=== PATIENT | female | born 1990 | race American Indian/Alaskan Native ===

== ENCOUNTER 2017-04-15 11:10 | Emergency (ER) | payer MEDICAID ==
[2017-04-15] MEDS ORDERED: ZOFRAN IV ONE (11:27)
[2017-04-15] MEDS ORDERED: NACL 0.9% 1000 ML 1,000 ML ONE (11:27)
[2017-04-15] MEDS ORDERED: NACL 0.9% 1000 ML 1,000 ML IV ONE ×3 (11:27→14:20)
--- NOTE | 2017-04-15 11:32 | Emergency Department Report ---
ED Syncope HPI - General Chief Complaint: Dizziness Stated Complaint: FAINTED/PREG Time Seen by Provider: 04/15/17 11:20 Source: patient Exam Limitations: other - History of Present Illness Initial Comments: 26-year-old female with anemia and sickle cell trait presents to the hospital complaints of syncope. Patient was at a job fair felt ill, sat down, then had a syncopal episode. EMS reports that his pressure was 90/60 and Accu-Chek 98 at the scene. 1 L IV fluids initiated prior to arrival. They report the patient mental status was depressed but appears to be more alert than she is currently. Patient is sleeping but arousable. She mumbles but is able to articulate with more effort. She is 15 weeks has had care. Positive nausea vomiting reported. She complains of pain all over. She denies chest pain or shortness of breath. After the arrival to the ED he states that patient is 27 weeks and had no complaints prior to this episode and denies recent history of nausea vomiting - Related Data Allergies/Adverse Reactions: Allergies metronidazole [From Flagyl] Allergy (Verified 04/15/17 11:36) Unknown Home Medications: Ambulatory Orders Ferrous Sulfate [Feosol 325 MG tab] 325 mg PO QDAY 04/15/17 Vit-Fe Fumar-FA [ Vitamin] 1 tab PO QDAY 04/15/17 ED Review of Systems ROS: Stated complaint: FAINTED/PREG Other details as noted in HPI Comment: Unobtainable due to pts medical conditions (patient's drowsy and will not answer questions) ED Past Medical Hx - Past Medical History Additional medical history: anemia, sickle cell trait - Social History Smoking Status: Unknown if ever smoked - Medications Home Medications: Home Medications Medication Instructions Recorded Confirmed Last Taken Type Ferrous Sulfate [Feosol 325 MG tab] 325 mg PO QDAY 04/15/17 04/15/17 Unknown History Vit-Fe Fumar-FA [ 1 tab PO QDAY 04/15/17 04/15/17 Unknown History Vitamin] ED Physical Exam - General Limitations: Altered Mental Status - Other Other exam information: General: Limited by patient's mental status/cooperate Head exam: Atraumatic, normocephalic Eyes exam: Patient closed her eyes and refuses to allow me to visualize her pupils and swats my hands away Neck exam: Normal inspection, full range of motion, no meningismus nontender Respiratory exam: Clear to auscultation bilateral, no wheezes, rales, crackles Cardiovascular: Normal rate and rhythm, normal heart sounds Abdomen: Soft, abdomen with palpable uterus, nontender. heart reported to be 150 by nurse Extremity: Full range of motion normal inspection no deformity Back: Normal Inspection, full range of motion, no tenderness Neurologic: Drowsy but arousable, moves all extremities, but not reliably follow commands repeating I am sick and don't feel well. GCS E 3, V, 4 M 4=12. 5/5 upper and lower extremity strength reported since patient resists when trying to move her Skin: Warm, dry, intact ED Course Vital Signs 04/15/17 04/15/17 04/15/17 11:31 12:17 12:21 Temperature 97.5 F L Pulse Rate 78 90 95 H Respiratory 14 15 12 Rate Blood Pressure 73/37 Blood Pressure 84/45 [Left] O2 Sat by Pulse 100 100 100 Oximetry 04/15/17 04/15/17 04/15/17 12:31 12:41 12:51 Temperature Pulse Rate 87 91 H 95 H Respiratory 16 17 12 Rate Blood Pressure 73/37 73/37 73/40 Blood Pressure [Left] O2 Sat by Pulse 100 100 100 Oximetry 04/15/17 04/15/17 04/15/17 13:18 13:21 13:30 Temperature Pulse Rate Respiratory 13 Rate Blood Pressure 82/54 86/44 86/45 Blood Pressure [Left] O2 Sat by Pulse 100 Oximetry 04/15/17 04/15/17 04/15/17 13:38 13:41 13:51 Temperature Pulse Rate Respiratory 14 14 15 Rate Blood Pressure 86/45 86/47 Blood Pressure [Left] O2 Sat by Pulse 100 100 100 Oximetry 04/15/17 04/15/17 04/15/17 14:09 14:11 14:21 Temperature Pulse Rate 80 Respiratory 15 15 13 Rate Blood Pressure 86/47 86/47 87/48 Blood Pressure [Left] O2 Sat by Pulse 100 100 100 Oximetry 04/15/17 04/15/17 04/15/17 14:30 14:41 14:51 Temperature Pulse Rate 78 79 85 Respiratory 13 13 13 Rate Blood Pressure 84/47 84/47 84/47 Blood Pressure [Left] O2 Sat by Pulse 100 100 100 Oximetry 04/15/17 04/15/17 04/15/17 15:00 15:11 15:21 Temperature Pulse Rate 80 83 80 Respiratory 15 15 14 Rate Blood Pressure 83/46 83/46 83/46 Blood Pressure [Left] O2 Sat by Pulse 100 100 100 Oximetry 04/15/17 04/15/17 04/15/17 15:30 15:41 16:00 Temperature Pulse Rate 85 86 88 Respiratory 13 14 13 Rate Blood Pressure 87/46 89/49 Blood Pressure 83/46 [Left] O2 Sat by Pulse 100 100 100 Oximetry 04/15/17 17:00 Temperature Pulse Rate 89 Respiratory 17 Rate Blood Pressure 96/54 Blood Pressure [Left] O2 Sat by Pulse 100 Oximetry - Reevaluation(s) Reevaluation #1: 04/15/17 11:37 Diastolic pressure of 81 after receiving 800 mL normal saline prior to arrival additional normal saline ordered Reevaluation #2: 04/15/17 13:04 Significant other came to the ED and stated that patient does not need a CT scan he does not know why she has not labor delivery. I explained that patient is altered which she confirms that she is currently not at her baseline mental status. I also informed him that she reported she was 15 weeks and he states she is 27 weeks. He also states that she seemed normal when he spoke to her earlier prior to syncopal episode and denies that she was having nausea or vomiting or any complaints other than intermittent leg edema. This caused a mild delay in obtaining CT scan of the head and he is now agreeable to obtaining the study. 04/15/17 13:[address] scan however, patient would not remain still on the table. We'll discuss proprius sedation medication in the setting of hypotension in a patient patient was placed in left lateral decubitus position during ED stay Reevaluation #3: 04/15/17 14:49 Pt rec Reevaluation #4: 04/15/17 16:33 I was able to arouse patient. She opens her eyes makes eye contact. She was able to respond to questions appropriately. I informed her that she has a bleeding her head and one E transfer and she asked if she was going to be okay. This time GCS is 14. - Consultations Consultation #1: 04/15/17 14:[address] Varma with [facility] [employer]. Nurse confirms a patient's blood pressure typically ranges 98-108 systolic. Confirms that ketamine is safe in 04/15/17 16:00 ct head result was faxed to Physician's office per request. made aware Consultation #2: 04/15/17 14:51 attempted transfers: [place]: no ICU beds 04/15/17 15:04 case d/w Dr Hatfield neurosurgery with [facility]. He rec transfer to the closet trauma center such as [facility]. This call was made through the [facility] transfer services who suggested that we try [facility] however I will be placed call to see if patient can be transferred to [facility] instead 04/15/17 15:55 Case d/w Dr Valles neurosurgeon [facility]. He will not accept the patient because he is unsure if they have highway maintenance crew worker although transfer service does confirm that they do have OB service. I have 04/15/17 16:19 Dr Will critical care doctor will accept pt to [facility]. Dr Valles and Ob attendings have been consulted and will evaluate pt. ED Medical Decision Making - Lab Data Result diagrams: 04/15/17 11:42 04/15/17 11:42 Lab Results 04/15/17 04/15/17 04/15/17 Range/Units 11:42 11:42 11:42 WBC 7.4 (4.5-11.0) K/mm3 RBC 2.61 L (3.65-5.03) M/mm3 Hgb 8.9 L (10.1-14.3) gm/dl Hct 26.4 L (30.3-42.9) % MCV 101 H (79-97) fl MCH 34 H (28-32) pg MCHC 34 (30-34) % RDW 13.2 (13.2-15.2) % Plt Count 152 (140-440) K/mm3 Lymph % (Auto) 22.5 (13.4-35.0) % [place] % (Auto) 6.7 (0.0-7.3) % Eos % (Auto) 0.5 (0.0-4.3) % Baso % (Auto) 0.8 (0.0-1.8) % Lymph # 1.7 (1.2-5.4) K/mm3 Rabun # 0.5 (0.0-0.8) K/mm3 Eos # 0.0 (0.0-0.4) K/mm3 Baso # 0.1 (0.0-0.1) K/mm3 Seg Neutrophils % 69.5 (40.0-70.0) % Seg Neutrophils # 5.2 (1.8-7.7) K/mm3 PT 14.6 (12.2-14.9) Sec. INR 1.15 H (0.87-1.13) Sodium 138 (137-145) mmol/L Potassium 3.6 (3.6-5.0) mmol/L Chloride 104.3 (98-107) mmol/L Carbon Dioxide 20 L (22-30) mmol/L Anion Gap 17 mmol/L BUN 6 L (7-17) mg/dL Creatinine 0.3 L (0.7-1.2) mg/dL Estimated GFR > 60 ml/min BUN/Creatinine Ratio 20.00 % Glucose 96 (65-100) mg/dL Calcium 7.8 L (8.4-10.2) mg/dL Total Bilirubin 0.60 (0.1-1.2) mg/dL AST 18 (5-40) units/L ALT 6 L (7-56) units/L Alkaline Phosphatase 32 L (35-129) units/L Total Creatine Kinase 51 (30-135) units/L CK-MB (CK-2) < 1.0 (0.0-4.0) ng/mL CK-MB (CK-2) Rel Index 1.9 (0-4) Troponin T < 0.010 (0.00-0.029) ng/mL Total Protein 5.1 L (6.3-8.2) g/dL Albumin 2.9 L (3.9-5) g/dL Albumin/Globulin Ratio 1.3 % Urine Color (Yellow) Urine Turbidity (Clear) Urine pH (5.0-7.0) Ur Specific [place] (1.003-1.030) Urine Protein (Negative) mg/dL Urine Glucose (UA) (Negative) mg/dL Urine Ketones (Negative) mg/dL Urine Blood (Negative) Urine Nitrite (Negative) Urine Bilirubin (Negative) Urine Urobilinogen (<2.0) mg/dL Ur Leukocyte Esterase (Negative) Urine WBC (Auto) (0.0-6.0) /HPF Urine RBC (Auto) (0.0-6.0) /HPF U Epithel Cells (Auto) (0-13.0) /HPF Urine Mucus /HPF Urine Opiates Screen Urine Methadone Screen Ur Barbiturates Screen Ur Phencyclidine Scrn Ur Amphetamines Screen U Benzodiazepines Scrn Urine Cocaine Screen U Marijuana (THC) Screen Drugs of Abuse Note Plasma/Serum Alcohol (0-0.07) gm% 04/15/17 04/15/17 04/15/17 Range/Units 11:42 12:13 12:13 WBC (4.5-11.0) K/mm3 RBC (3.65-5.03) M/mm3 Hgb (10.1-14.3) gm/dl Hct (30.3-42.9) % MCV (79-97) fl MCH (28-32) pg MCHC (30-34) % RDW (13.2-15.2) % Plt Count (140-440) K/mm3 Lymph % (Auto) (13.4-35.0) % [place] % (Auto) (0.0-7.3) % Eos % (Auto) (0.0-4.3) % Baso % (Auto) (0.0-1.8) % Lymph # (1.2-5.4) K/mm3 [place] # (0.0-0.8) K/mm3 Eos # (0.0-0.4) K/mm3 Baso # (0.0-0.1) K/mm3 Seg Neutrophils % (40.0-70.0) % Seg Neutrophils # (1.8-7.7) K/mm3 PT (12.2-14.9) Sec. INR (0.87-1.13) Sodium (137-145) mmol/L Potassium (3.6-5.0) mmol/L Chloride (98-107) mmol/L Carbon Dioxide (22-30) mmol/L Anion Gap mmol/L BUN (7-17) mg/dL Creatinine (0.7-1.2) mg/dL Estimated GFR ml/min BUN/Creatinine Ratio % Glucose (65-100) mg/dL Calcium (8.4-10.2) mg/dL Total Bilirubin (0.1-1.2) mg/dL AST (5-40) units/L ALT (7-56) units/L Alkaline Phosphatase (35-129) units/L Total Creatine Kinase (30-135) units/L CK-MB (CK-2) (0.0-4.0) ng/mL CK-MB (CK-2) Rel Index (0-4) Troponin T (0.00-0.029) ng/mL Total Protein (6.3-8.2) g/dL Albumin (3.9-5) g/dL Albumin/Globulin Ratio % Urine Color Yellow (Yellow) Urine Turbidity Clear (Clear) Urine pH 5.0 (5.0-7.0) Ur Specific [place] 1.016 (1.003-1.030) Urine Protein <15 mg/dl (Negative) mg/dL Urine Glucose (UA) Neg (Negative) mg/dL Urine Ketones Neg (Negative) mg/dL Urine Blood Neg (Negative) Urine Nitrite Neg (Negative) Urine Bilirubin Neg (Negative) Urine Urobilinogen 2.0 (<2.0) mg/dL Ur Leukocyte Esterase Neg (Negative) Urine WBC (Auto) 2.0 (0.0-6.0) /HPF Urine RBC (Auto) < 1.0 (0.0-6.0) /HPF U Epithel Cells (Auto) < 1.0 (0-13.0) /HPF Urine Mucus 1+ /HPF Urine Opiates Screen Presumptive negative Urine Methadone Screen Presumptive negative Ur Barbiturates Screen Presumptive negative Ur Phencyclidine Scrn Presumptive negative Ur Amphetamines Screen Presumptive negative U Benzodiazepines Scrn Presumptive negative Urine Cocaine Screen Presumptive negative U Marijuana (THC) Screen Presumptive negative Drugs of Abuse Note Disclamer Plasma/Serum Alcohol < 0.01 (0-0.07) gm% - EKG Data -: EKG Interpreted by Me (sinus rhythm rate [address]-T wave abnormalities) - Radiology Data Radiology results: report reviewed CT head: Multifocal areas of parenchymal hemorrhage most of which are periphery and located at the maharaj-white matter interface. Small right temporal subdural hematoma. Most likely etiology for these findings as trauma however there is no evidence of skull fracture or associated signs. Please correlate clinically. - Medical Decision Making Patient would need transfer to a place with neurology and neurosurgical carvers. Etiology is suggestive of head trauma based on CT findings although no trauma is confirmed on exam other than possible head injury during syncopal episode. - Differential Diagnosis anemia, vasovagal, infection, drug use, intracranial hemorrhage Critical Care Time: Yes Critical care time in (mins) excluding proc time.: 65 (multiple consults an effort to transfer. Reassessments of mental status and vital signs) Critical care attestation.: If time is entered above; I have spent that time in minutes in the direct care of this critically ill patient, excluding procedure time. ED Disposition Clinical Impression: Intracranial hemorrhage, 27 weeks gestation of , Altered mental status , Hypotension Disposition: DC/TX ANOTHER TYPE HEALTHCARE Is pt being admited?: No Condition: Stable Referrals: PRIMARY CARE,MD [Primary Care Provider] - 3-5 Days Time of Disposition: 16:20 (accepted by Dr Will at [facility]
[2017-04-15 12:03] LABS: Basophils % (Auto) 0.8 % (0.0-1.8); Eosinophils % (Auto) 0.5 % (0.0-4.3); Hematocrit 26.4 % (30.3-42.9); Hemoglobin 8.9 gm/dl (10.1-14.3); Mean Corpuscular HGB Conc 34 % (30-34); Mean Corpuscular Hemoglobin 34 pg (28-32); Mean Corpuscular Volume 101 fl (79-97); Platelet Count 152 K/mm3 (140-440); Red Blood Count 2.61 M/mm3 (3.65-5.03); Red Cell Distribution Width 13.2 % (13.2-15.2); White Blood Count 7.4 K/mm3 (4.5-11.0)
[2017-04-15 12:19] LABS: Urine Drugs of Abuse Note Disclamer
[2017-04-15 12:21] LABS: INR 1.15 (0.87-1.13)
[2017-04-15 12:28] LABS: Alanine Aminotransferase 6 units/L (7-56); Albumin 2.9 g/dL (3.9-5); Albumin/Globulin Ratio 1.3 %; Alkaline Phosphatase 32 units/L (35-129); Anion Gap 17 mmol/L; Blood Urea Nitrogen 6 mg/dL (7-17); Calcium 7.8 mg/dL (8.4-10.2); Carbon Dioxide 20 mmol/L (22-30); Chloride 104.3 mmol/L (98-107); Creatine Kinase 51 units/L (30-135); Glucose 96 mg/dL (65-100); Potassium 3.6 mmol/L (3.6-5.0); Sodium 138 mmol/L (137-145); Total Protein 5.1 g/dL (6.3-8.2)
[2017-04-15 12:31] LABS: Creatine Kinase MB < 1.0 ng/mL (0.0-4.0)
[2017-04-15 12:57] LABS: Bilirubin,Urine NEG (Negative); Blood,Urine NEG (Negative); Ketones,Urine NEG (Negative); Leukocyte Esterase,Urine NEG (Negative); Mucus,Urine 1+ /HPF; Nitrite,Urine NEG (Negative); Protein,Urine <15 mg/dL mg/dL (Negative); RBC,Urine < 1.0 /HPF (0.0-6.0)
--- NOTE | 2017-04-15 13:38 | Admit Criteria Form ---
Admission Criteria Documentation: SYNCOPE Clinical Indications for Admission to Inpatient Care ( Place 'X' for any and all applicable criteria): Admission is indicated for syncope and ANY ONE of the following (1)(2)(3)(4)(5) (6)(7) : [x ]I. Inpatient admission required rather than observation care (Also use Syncope: Observation Care Criteria as appropriate) because of ANY ONE of the following: [ ]a) Hemodynamic instability that is severe or persistent [ ]b) Cardiac arrhythmias of immediate concern identified or strongly suspected (eg, needs electrophysiologic study) [ ]c) Acute coronary syndrome identified (Also use Myocardial Infarction or Angina Criteria form ) [ ]d) Structural cardiac disorder (eg, aortic stenosis) suspected as cause that requires immediate correction [ ]e) Respiratory symptoms (eg, dyspnea, tachypnea) that are severe or persistent [ ]f) Neurologic signs or symptoms that are severe or persistent ( eg, stroke, seizures, altered mental status) [ ]g) Severe electrolyte abnormalities requiring inpatient care [ ]h) Supplemental oxygen or respiratory treatment for over 24 hrs that are performable only in acute inpatient setting [ ]i) IV fluid to replace significant ongoing (eg, for over 24 hrs ) losses (>3 L/m2 per day) [ ]j) Continuous intravenous infusion of anticoagulation, platelet inhibitor, vasoactive, or antiarrhythmic medication(15)(16) [ ]k) Pulmonary artery catheter monitoring [ ]l) Temporary pacemaker placement(17) [ ]m) Emergent cardioversion(18) [ x]n) Other conditions, treatment or monitoring requiring inpatient admission [ ]II. Suspicion of imminently dangerous cause (eg, rare causes like pericardial tamponade, pulmonary embolism) [ ]III. Syncope causing severe injury requiring hospitalization Extended stay beyond goal length of stay may be needed for(28) [ ]a) Dangerous arrhythmia(15)(23)(27)(29) [ ]b) Myocardial ischemia [ ]c) Seizure disorder [ ]d) Syncope-related injuries The original [employer] content created by [employer] has been revised. The portions of the content which have been revised are identified through the use of italic text or in bold, and [employer] has neither reviewed nor approved the modified material. All other unmodified content is copyright [facility] [email or web address]. Please see references footnoted in the original [facility] edition 2016
[2017-04-15] MEDS ORDERED: KETALAR IV ONE (13:56)
[2017-04-15] MEDS ORDERED: KETALAR ONE (13:57)
[2017-04-15] MEDS: KETALAR IV ONE ×2 (14:05→14:10)
--- NOTE | 2017-04-15 14:44 | Cat Scan Report ---
Cranial CT without contrast. History: Syncope, altered status, in a patient who is 15 weeks . Findings: There are multiple areas of parenchymal hemorrhage in the left frontal lobe, left temporal lobe, right temporal lobe. The largest of disease measures 1. 5 cm in diameter located in the left frontal lobe. Several of these are at at the maharaj-white matter interface. There is also a small right temporal subdural hematoma measuring approximately 5 mm in width. There is no evidence of adjacent skull fracture. The posterior fossa is unremarkable. The ventricles are normal. There are no additional extra-axial collections. Impression: 1. Multifocal areas of parenchymal hemorrhage most of which are peripherally located at the maharaj-white matter interface. 2. Small right temporal subdural hematoma. The most likely etiology for these findings is trauma. There is no evidence of skull fracture or other associated findings. Clinical correlation is advised.
[2017-04-15 18:07] VITALS: BP 96/54
== END 2017-04-15 19:35 | disposition other institution (70) ==
LOC: ED 11:10
DX: O26.892 Other specified pregnancy related conditions, second trimester (principal); I62.9 Nontraumatic intracranial hemorrhage, unspecified; R41.82 Altered mental status, unspecified; I95.9 Hypotension, unspecified; Z88.8 Allergy status to other drugs, medicaments and biological substances; Z3A.27 27 weeks gestation of pregnancy
CPT/HCPCS: 36415; 51701; 70450; 80053; 80307; 81001; 82550; 82553; 84484; 85025; 85610; 85730; 96361; 96374; 96375; 99291; G0480; J2405; J7030; 80320